=== PATIENT | female | born 1965 | race Caucasian/White ===

== ENCOUNTER → 2018-01-10 | Outpatient (CLI) | payer OTHER | END | disposition home or self-care (01) | LOC: RAD 15:04 | PROVIDERS: ATTEND Physician Assistant | DX: S63.641A Sprain of metacarpophalangeal joint of right thumb, initial encounter (principal); Y93.23 Activity, snow (alpine) (downhill) skiing, snowboarding, sledding, tobogganing and snow tubing ==

== ENCOUNTER 2020-01-13 17:44 | Emergency (ER) | payer OTHER ==
[~2020-01-13] VITALS: Ht 175.3 cm; Wt 91.1 kg
--- NOTE | 2020-01-13 18:19 | NUR ---
This is a 54 y/o female arriving to the ed with lower left quadrant abd pain. Pt reports she was seen at [facility] and treated for diverticulitis. Pt reports after starting abx therapy she felt much better. However pt reports she has bright red blood in her stool and is concerned about that. Pt has good cap reffil with even and unlabore respirations. vss. Call light in reach. Awaiting further orders.
[2020-01-13] MEDS ORDERED: SODIUM CHLORIDE 0.9% 1,000ML IVBOLUS ONE (18:30)
[2020-01-13] MEDS ORDERED: SODIUM CHLORIDE FLUSH 10ML SYR IVF ONE (18:30)
[2020-01-13 18:37] LABS: BASOPHILS # (AUTO) 0.04 x10^3/uL (0-0.1); BASOPHILS % (AUTO) 1 % (0-1); EOSINOPHILS # (AUTO) 0.29 x10^3/uL (0-0.4); EOSINOPHILS % (AUTO) 7 % (1-7); LYMPHOCYTES # (AUTO) 1.22 x10^3/uL (1-3.4); LYMPHOCYTES % (AUTO) 28 % (22-44); MD NO; MEAN CORPUSCULAR HEMOGLOBIN 30.4 pg (27.0-34.8); MEAN CORPUSCULAR HGB CONC 33.6 g/dL (32.4-35.8); MEAN CORPUSCULAR VOLUME 90.4 fL (80-100); MEAN PLATELET VOLUME 8.4 fL (7.4-10.4); MONOCYTES # (AUTO) 0.52 x10^3/uL (0.2-0.8); MONOCYTES % (AUTO) 12 % (2-9); NEUTROPHILS # (AUTO) 2.34 x10^3/uL (1.8-6.8); NEUTROPHILS % (AUTO) 53 % (42-75); PLATELET COUNT 277 x10^3/uL (130-400); RED BLOOD COUNT 4.51 x10^6/uL (3.82-5.3); RED CELL DISTRIBUTION WIDTH 13.4 % (9.6-15.2)
[2020-01-13 18:50] LABS: ALBUMIN 3.6 g/dL (3.4-5.0); CALCIUM 9.1 mg/dL (8.5-10.1); CHLORIDE 107 mmol/L (98-107)
[2020-01-13 18:55] LABS: ALANINE AMINOTRANSFERASE 96 U/L (12-78); ALKALINE PHOSPHATASE 78 U/L (45-117); ANION GAP 8 mmol/L (5-15); BILIRUBIN,TOTAL 0.3 mg/dL (0.2-1.0); CREATININE 0.88 mg/dL (0.55-1.02); TOTAL PROTEIN 7.6 g/dL (6.4-8.2)
[2020-01-13] MEDS ORDERED: OMNIPAQUE 350 MG/ML, 100ML BOTTLE ONE (19:08)
--- NOTE | 2020-01-13 19:26 | NUR ---
PT UP TO BR WITH STRONG STEADY GAIT. PT STATES "I REALLY FEEL MUCH BETTER, BUT NOW I HAVE BRIGHT RED POOP. IT MIGHT BE THE RED JELLO I ATE 2 DAYS AGO, BUT I'M JUST NOT SURE" PT GIVEN INSTRUCTIONS ON COLLECTION OF URINE FOR TESTING.
[2020-01-13 19:57] LABS: MICROSCOPIC AUTO
[2020-01-13 19:58] LABS: CULTURE INDICATED? YES
[2020-01-13 20:05] VITALS: BP 128/54
--- NOTE | 2020-01-13 20:06 | NUR ---
DISCHARGE INSTRUCTIONS GIVEN TO PATIENT. PT VERBALIZES UNDERSTANDING OF ALL INSTRUCTIONS AND FOLLOW UP. PT AMBULATED OUT OF ED WITH STRONG STEADY GAIT.
== END 2020-01-13 20:07 | disposition home or self-care (01) ==
LOC: ED 18:15
DX: K57.33 Diverticulitis of large intestine without perforation or abscess with bleeding (principal)
CPT/HCPCS: 36415; 74177; 80053; 81001; 83690; 85025; 87086; 99285; Q9967